=== PATIENT | male | born 1940 | race Caucasian/White ===

== ENCOUNTER 2019-12-17 14:13 | Inpatient (IN) ==
[2019-12-17] MEDS ORDERED: Furosemide 40 MG/4 ML VIAL IVP STA (14:50)
[2019-12-17 14:59] LABS: Basophils % 0.4 %; Eosinophils # 0.2 K/mcL (0.0-0.6); Hematocrit 48.7 % (37.5-50.1); Hemoglobin 15.7 g/dL (12.9-16.9); Immature Granulocytes % 0.3 % (0-4); Lymphocytes # 1.1 K/mcL (0.6-4.6); Lymphocytes % 14.1 %; Mean Corpuscular HGB Conc 32.2 g/dL (31.6-35.5); Mean Platelet Volume 10.6 fL (9.4-12.4); Monocytes # 0.5 K/mcL (0.0-1.3); Monocytes % 6.4 %; Neutrophils # 5.8 K/mcL (1.6-8.9); Platelet Count 191 K/mcL (140-400); Red Blood Count 5.41 M/mcL (4.19-5.50); Red Cell Distribution Width 13.3 % (11.5-14.5); Segmented Neutrophils % 76.8 %; White Blood Count 7.6 K/mcL (4.3-11.1)
[2019-12-17 15:12] LABS: INR 2.5
[2019-12-17 15:15] LABS: Activated Partial Thrombo Time 41.8 Seconds (26.0-36.0)
[2019-12-17 15:20] LABS: Alanine Aminotransferase 16 Units/L (7-52); Albumin 4.2 g/dL (3.5-5.7); Albumin/Globulin Ratio 1.8 (1.1-2.2); Alkaline Phosphatase 48 Units/L (34-104); Aspartate Amino Transferase 15 Units/L (13-39); BUN/Creatinine Ratio 13 (6-26); Blood Urea Nitrogen 17 mg/dL (8-23); Calcium 9.9 mg/dL (8.6-10.3); Carbon Dioxide 36 mEq/L (23-29); Chloride 101 mEq/L (98-107); Globulin 2.3 g/dL (2.4-3.5); Glucose 115 mg/dL (70-105); Osmolality,Calculated 298 (280-300); Sodium 143 mEq/L (136-145); Total Protein 6.5 g/dL (6.4-8.9); Troponin I < 0.03 ng/mL (< 0.04); eGFR For African Americans > 60 (> 60); eGFR For Non-African Americans 50 (> 60)
[2019-12-17] MEDS ORDERED: Naloxone 0.4 MG/ML INJ IVP PRN (16:16)
[2019-12-17] MEDS: cloNIDine HCL 0.1 MG TABLET PO SCH (21:17)
[2019-12-17] MEDS: Furosemide 40 MG/4 ML VIAL IVP SCH (21:18)
[2019-12-17] MEDS: *HR* Heparin 5,000 UNIT/ML VIAL SQ SCH (21:18)
[2019-12-17] MEDS: hydrALAZINE 25 MG TABLET PO SCH (23:51)
[2019-12-18] MEDS: *HR* Heparin 5,000 UNIT/ML VIAL SQ SCH ×2 (05:31→15:32)
[2019-12-18] MEDS: Multivit/Ca/Min/Fe/FA 1 TAB TABLET PO SCH (08:10)
[2019-12-18] MEDS: Finasteride 5 MG TABLET PO SCH (08:10)
[2019-12-18] MEDS: amLODIPine 5 MG TABLET PO SCH (08:10)
[2019-12-18] MEDS: Ascorbic Acid 500 MG TABLET PO SCH (08:10)
[2019-12-18] MEDS: cloNIDine HCL 0.1 MG TABLET PO SCH ×2 (08:10→20:15)
[2019-12-18] MEDS: Furosemide 40 MG/4 ML VIAL IVP SCH ×2 (08:10→20:15)
[2019-12-18] MEDS: hydrALAZINE 25 MG TABLET PO SCH ×2 (08:10→15:33)
[2019-12-18 08:22] LABS: Basophils % 0.4 %; Eosinophils # 0.2 K/mcL (0.0-0.6); Eosinophils % 2.4 %; Hematocrit 51.5 % (37.5-50.1); Hemoglobin 16.8 g/dL (12.9-16.9); Immature Granulocytes % 0.3 % (0-4); Lymphocytes # 1.2 K/mcL (0.6-4.6); Lymphocytes % 17.2 %; Mean Corpuscular HGB Conc 32.6 g/dL (31.6-35.5); Mean Corpuscular Hemoglobin 29.3 pg (28.0-33.3); Mean Corpuscular Volume 89.9 fL (83.0-100.0); Mean Platelet Volume 10.9 fL (9.4-12.4); Monocytes # 0.6 K/mcL (0.0-1.3); Monocytes % 8.3 %; Neutrophils # 5.2 K/mcL (1.6-8.9); Platelet Count 207 K/mcL (140-400); Red Blood Count 5.73 M/mcL (4.19-5.50); Red Cell Distribution Width 13.5 % (11.5-14.5); Segmented Neutrophils % 71.4 %; White Blood Count 7.2 K/mcL (4.3-11.1)
[2019-12-18 08:43] LABS: Calcium 9.7 mg/dL (8.6-10.3); Potassium 3.2 mEq/L (3.5-5.1)
[2019-12-18] MEDS ORDERED: NON-FORMULARY MEDICATION 1 EACH EACH (Clonidine Hcl [Clonidine Hcl] 0.2 MG) PO SCH (09:00)
[2019-12-18] MEDS ORDERED: NON-FORMULARY MEDICATION 1 EACH EACH (Amlodipine Besylate 10 MG) PO SCH (09:00)
[2019-12-18] MEDS ORDERED: Bismuth Subsalicylate 120 ML ORAL SUSPENSION PO ONE (10:16)
[2019-12-18] MEDS ORDERED: Sennosides/Docusate Sodium TABLET PO PRN (16:03)
[2019-12-18] MEDS: polyethylene glycoL 3350 17 GM POWD.PACK PO SCH (17:46)
[2019-12-18] MEDS ORDERED: *HR* Warfarin 3 MG TABLET PO ONE (18:00)
[2019-12-18] MEDS ORDERED: Warfarin perPT PO PRN (18:00)
[2019-12-19] MEDS: hydrALAZINE 25 MG TABLET PO SCH ×2 (00:27→08:06)
[2019-12-19 04:42] LABS: INR 2.1; Prothrombin Time 24.4 Seconds (9.4-12.1)
[2019-12-19 04:58] LABS: Calcium 9.5 mg/dL (8.6-10.3); Magnesium 2.2 mg/dL (1.6-2.6); Phosphorous 3.4 mg/dL (2.7-4.5); Potassium 3.7 mEq/L (3.5-5.1)
[2019-12-19] MEDS: Finasteride 5 MG TABLET PO SCH (08:06)
[2019-12-19] MEDS: amLODIPine 5 MG TABLET PO SCH (08:06)
[2019-12-19] MEDS: Multivit/Ca/Min/Fe/FA 1 TAB TABLET PO SCH (08:06)
[2019-12-19] MEDS: polyethylene glycoL 3350 17 GM POWD.PACK PO SCH (08:07)
[2019-12-19] MEDS: cloNIDine HCL 0.1 MG TABLET PO SCH (08:07)
[2019-12-19] MEDS: Furosemide 40 MG/4 ML VIAL IVP SCH (08:07)
[2019-12-19] MEDS: Ascorbic Acid 500 MG TABLET PO SCH (08:07)
[2019-12-19 11:20] VITALS: BP 144/90
== END 2019-12-19 12:14 | disposition home or self-care (01) | DRG 292 ==
LOC: EMEROOARM 14:13 → 3BNU 14:13 → SUATTDRO 16:17 → 3BNU 17:30
PROVIDERS: ADMIT Internal Medicine; ATTEND Internal Medicine

== ENCOUNTER 2021-01-18 10:36 | Inpatient (IN) ==
[2021-01-18 12:48] LABS: INR 2.6; Prothrombin Time 29.5 Seconds (9.4-12.1)
[2021-01-18 12:51] LABS: Basophils % 0.1 %; Eosinophils # 0.1 K/mcL (0.0-0.6); Eosinophils % 0.5 %; Hematocrit 38.8 % (37.5-50.1); Hemoglobin 12.6 g/dL (12.9-16.9); Immature Granulocytes % 0.6 % (0-4); Lymphocytes # 1.2 K/mcL (0.6-4.6); Lymphocytes % 10.6 %; Mean Corpuscular HGB Conc 32.5 g/dL (31.6-35.5); Mean Corpuscular Volume 92.4 fL (83.0-100.0); Mean Platelet Volume 10.6 fL (9.4-12.4); Monocytes # 0.8 K/mcL (0.0-1.3); Monocytes % 7.8 %; Neutrophils # 8.7 K/mcL (1.6-8.9); Platelet Count 173 K/mcL (140-400); Red Cell Distribution Width 14.3 % (11.5-14.5); Segmented Neutrophils % 80.4 %; White Blood Count 10.8 K/mcL (4.3-11.1)
[2021-01-18] MEDS ORDERED: 0.9 % Sodium Chloride 1,000 ML IVC ONE (13:09)
[2021-01-18] MEDS ORDERED: Piperacillin/Tazobactam 3.375 GM in 0.9 % Sodium Chloride Mini Bag 100 ML IVPB ONE (13:17)
[2021-01-18 13:29] LABS: Albumin 3.7 g/dL (3.5-5.7); Albumin/Globulin Ratio 1.3 (1.1-2.2); Bilirubin,Direct 0.4 mg/dL (0.0-0.2); Bilirubin,Indirect 1.2 mg/dL (0.0-1.0); Bilirubin,Total 1.6 mg/dL (0.3-1.0); Calcium 9.5 mg/dL (8.6-10.3); Globulin 2.8 g/dL (2.4-3.5); Potassium 4.5 mEq/L (3.5-5.1); Total Protein 6.5 g/dL (6.4-8.9)
[2021-01-18 14:19] LABS: Bilirubin,Urine Negative (Negative); Blood,Urine Negative (Negative); Clarity,Urine Clear (Clear); Color,Urine Yellow (Yellow); Glucose,Urine (UA) Normal (Normal); Ketones,Urine Negative (Negative); Leukocyte Esterase,Urine Negative (Negative); Nitrite,Urine Negative (Negative); Protein,Urine Trace mg/dL (Neg-Trace); Specific Gravity,Urine 1.015 (1.010-1.025); Urobilinogen,Urine Normal (Normal)
[2021-01-18] MEDS ORDERED: *HR* HYDROcodone/Acet 5/325 mg TABLET PO PRN (15:43)
[2021-01-18] MEDS ORDERED: Ondansetron 4 MG/2 ML VIAL IVP PRN (15:43)
[2021-01-18] MEDS ORDERED: Naloxone 0.4 MG/ML INJ IVP PRN (15:43)
[2021-01-18] MEDS ORDERED: Acetaminophen 325 MG TABLET PO PRN (15:43)
[2021-01-18] MEDS ORDERED: Melatonin 3 MG TABLET PO PRN (15:43)
[2021-01-18] MEDS ORDERED: Perflutren Lipid Microsphere 1.3 ML in 0.9 % Sodium Chloride 8.7 ML IVP PRN (16:10)
[2021-01-18] MEDS ORDERED: *HR* Warfarin 5 MG TABLET PO ONE (18:00)
[2021-01-18] MEDS ORDERED: *HR* Warfarin 3 MG TABLET PO ONE (18:00)
[2021-01-18] MEDS ORDERED: Warfarin perPT PO PRN (18:00)
[2021-01-18] MEDS ORDERED: Vancomycin 1,750 MG/517.5 ML IV.SOLN IVPB SCH (18:00)
[2021-01-18] MEDS: Albumin 25% 25gram/100mL 25 GM/100 ML IV.SOLN IVPB SCH (20:48)
[2021-01-18] MEDS: Furosemide 40 MG/4 ML VIAL IVP SCH (22:17)
[2021-01-19 04:54] LABS: Basophils % 0.2 %; Eosinophils # 0.1 K/mcL (0.0-0.6); Eosinophils % 1.4 %; Hematocrit 35.6 % (37.5-50.1); Hemoglobin 11.8 g/dL (12.9-16.9); Immature Granulocytes % 0.4 % (0-4); Lymphocytes # 1.1 K/mcL (0.6-4.6); Lymphocytes % 12.1 %; Mean Corpuscular HGB Conc 33.1 g/dL (31.6-35.5); Mean Corpuscular Hemoglobin 30.3 pg (28.0-33.3); Mean Corpuscular Volume 91.5 fL (83.0-100.0); Mean Platelet Volume 10.7 fL (9.4-12.4); Monocytes # 0.7 K/mcL (0.0-1.3); Neutrophils # 7.3 K/mcL (1.6-8.9); Platelet Count 173 K/mcL (140-400); Red Blood Count 3.89 M/mcL (4.19-5.50); Red Cell Distribution Width 14.3 % (11.5-14.5); Segmented Neutrophils % 78.9 %; White Blood Count 9.2 K/mcL (4.3-11.1)
[2021-01-19 05:02] LABS: Estimated Average Glucose 120 mg/dl; Hemoglobin A1C 5.8 %; INR 2.6; Prothrombin Time 29.7 Seconds (9.4-12.1)
[2021-01-19 05:15] LABS: Albumin 3.6 g/dL (3.5-5.7); Albumin/Globulin Ratio 1.3 (1.1-2.2); Bilirubin,Total 1.7 mg/dL (0.3-1.0); Calcium 9.1 mg/dL (8.6-10.3); Chol/HDL Ratio 4.6 (0-4.9); Globulin 2.7 g/dL (2.4-3.5); Magnesium 2.5 mg/dL (1.6-2.6); Phosphorous 2.8 mg/dL (2.7-4.5); Potassium 4.9 mEq/L (3.5-5.1); Total Protein 6.3 g/dL (6.4-8.9)
[2021-01-19 05:16] LABS: % Iron Saturation 23 % (20-55); Iron 45 mcg/dL (65-175); Transferrin 142 mg/dL (203-362)
[2021-01-19 05:28] LABS: Thyroid Stimulating Hormone 0.512 mcIU/mL (0.340-5.600)
[2021-01-19 05:32] LABS: Ferritin 1131 ng/mL (20-250)
[2021-01-19 05:42] LABS: Folate > 22.3 ng/mL (3.0-16.0); Vitamin B12 262 pg/mL (250-1100)
[2021-01-19] MEDS: Albumin 25% 25gram/100mL 25 GM/100 ML IV.SOLN IVPB SCH ×2 (06:25→18:41)
[2021-01-19] MEDS ORDERED: Iron Sucrose Complex 400 MG in 0.9 % Sodium Chloride 250 ML IVPB ONE (08:01)
[2021-01-19] MEDS: Furosemide 40 MG/4 ML VIAL IVP SCH ×2 (09:47→20:55)
[2021-01-19] MEDS: cloNIDine HCL 0.1 MG TABLET PO SCH ×2 (15:22→20:55)
[2021-01-19] MEDS: hydrALAZINE 25 MG TABLET PO SCH ×2 (17:04→23:35)
[2021-01-19] MEDS: Finasteride 5 MG TABLET PO SCH (17:05)
[2021-01-19] MEDS: carvediloL 6.25 MG TABLET PO SCH (17:05)
[2021-01-19] MEDS: Vancomycin 1,250 MG/262.5 ML IV.SOLN IVPB SCH (17:05)
[2021-01-19] MEDS ORDERED: amLODIPine 5 MG TABLET PO SCH (18:00)
[2021-01-19] MEDS ORDERED: *HR* Warfarin 3 MG TABLET PO ONE (18:00)
[2021-01-19] MEDS ORDERED: cloNIDine HCL 0.1 MG TABLET PO SCH (21:00)
[2021-01-20] MEDS: Albumin 25% 25gram/100mL 25 GM/100 ML IV.SOLN IVPB SCH ×2 (06:20→21:18)
[2021-01-20 06:31] LABS: Hematocrit 37.1 % (37.5-50.1); Hemoglobin 12.2 g/dL (12.9-16.9); Mean Corpuscular HGB Conc 32.9 g/dL (31.6-35.5); Mean Corpuscular Hemoglobin 30.2 pg (28.0-33.3); Mean Corpuscular Volume 91.8 fL (83.0-100.0); Mean Platelet Volume 10.2 fL (9.4-12.4); Platelet Count 237 K/mcL (140-400); Red Blood Count 4.04 M/mcL (4.19-5.50); White Blood Count 8.1 K/mcL (4.3-11.1)
[2021-01-20 06:32] LABS: INR 2.8; Prothrombin Time 31.4 Seconds (9.4-12.1)
[2021-01-20 06:51] LABS: Calcium 9.9 mg/dL (8.6-10.3); Magnesium 2.5 mg/dL (1.6-2.6); Phosphorous 3.2 mg/dL (2.7-4.5); Potassium 4.5 mEq/L (3.5-5.1)
[2021-01-20] MEDS: Furosemide 40 MG/4 ML VIAL IVP SCH ×2 (08:49→21:19)
[2021-01-20] MEDS: Ascorbic Acid 500 MG TABLET PO SCH (08:49)
[2021-01-20] MEDS: Spironolactone 25 MG TABLET PO SCH (08:50)
[2021-01-20] MEDS: carvediloL 6.25 MG TABLET PO SCH ×2 (08:50→17:06)
[2021-01-20] MEDS: Multivit/Ca/Min/Fe/FA 1 TAB TABLET PO SCH (08:50)
[2021-01-20] MEDS: cloNIDine HCL 0.1 MG TABLET PO SCH ×3 (08:50→21:18)
[2021-01-20] MEDS: hydrALAZINE 25 MG TABLET PO SCH ×2 (08:50→17:05)
[2021-01-20] MEDS: Vitamin E 200 UNIT (90MG) CAPSULE PO SCH (08:51)
[2021-01-20] MEDS: cefTRIAXone 1,000 MG in Water for inj. (sterile) 10 ML IVP SCH (12:55)
[2021-01-20] MEDS: Finasteride 5 MG TABLET PO SCH (17:06)
[2021-01-20] MEDS ORDERED: *HR* Warfarin 3 MG TABLET PO ONE (18:00)
[2021-01-20] MEDS: Vancomycin 1,250 MG/262.5 ML IV.SOLN IVPB SCH (18:14)
[2021-01-20] MEDS: Lactobacillus 1 EACH CAP.SPRINK PO SCH (21:18)
[2021-01-21] MEDS: hydrALAZINE 25 MG TABLET PO SCH ×2 (00:38→09:31)
[2021-01-21 05:56] LABS: Hematocrit 35.6 % (37.5-50.1); Hemoglobin 11.4 g/dL (12.9-16.9); Mean Corpuscular Hemoglobin 29.5 pg (28.0-33.3); Mean Platelet Volume 10.2 fL (9.4-12.4); Platelet Count 257 K/mcL (140-400); Red Blood Count 3.87 M/mcL (4.19-5.50); Red Cell Distribution Width 14.2 % (11.5-14.5); White Blood Count 8.7 K/mcL (4.3-11.1)
[2021-01-21 06:03] LABS: INR 2.9; Prothrombin Time 32.7 Seconds (9.4-12.1)
[2021-01-21 06:16] LABS: Calcium 9.5 mg/dL (8.6-10.3); Magnesium 2.4 mg/dL (1.6-2.6); Phosphorous 3.4 mg/dL (2.7-4.5); Potassium 4.6 mEq/L (3.5-5.1)
[2021-01-21] MEDS: Albumin 25% 25gram/100mL 25 GM/100 ML IV.SOLN IVPB SCH (06:31)
[2021-01-21 07:43] VITALS: BP 150/90
[2021-01-21] MEDS: Spironolactone 25 MG TABLET PO SCH (09:31)
[2021-01-21] MEDS: Ascorbic Acid 500 MG TABLET PO SCH (09:31)
[2021-01-21] MEDS: Lactobacillus 1 EACH CAP.SPRINK PO SCH (09:31)
[2021-01-21] MEDS: cloNIDine HCL 0.1 MG TABLET PO SCH (09:31)
[2021-01-21] MEDS: Multivit/Ca/Min/Fe/FA 1 TAB TABLET PO SCH (09:31)
[2021-01-21] MEDS: Vitamin E 200 UNIT (90MG) CAPSULE PO SCH (09:32)
[2021-01-21] MEDS: carvediloL 6.25 MG TABLET PO SCH (09:32)
[2021-01-21] MEDS: Furosemide 40 MG/4 ML VIAL IVP SCH (09:32)
[2021-01-21] MEDS: cefTRIAXone 1,000 MG in Water for inj. (sterile) 10 ML IVP SCH (12:38)
[2021-01-21] MEDS ORDERED: Vancomycin 1,500 MG/265 ML IV.SOLN IVPB SCH (18:00)
[2021-01-21] MEDS ORDERED: *HR* Warfarin 3 MG TABLET PO ONE (18:00)
== END 2021-01-21 14:16 | disposition home health service (06) | DRG 602 ==
LOC: 3ANU 10:36 → EMEROOARM 10:36 → SUATTDRO 15:36 → 3ANU 16:35
PROVIDERS: ADMIT Internal Medicine; ATTEND Internal Medicine

== ENCOUNTER 2021-01-28 13:26 | Observation (INO) ==
[2021-01-28 14:17] LABS: Basophils % 0.1 %; Hematocrit 42.4 % (37.5-50.1); Hemoglobin 13.5 g/dL (12.9-16.9); Immature Granulocytes % 0.6 % (0-4); Lymphocytes # 0.8 K/mcL (0.6-4.6); Lymphocytes % 2.9 %; Mean Corpuscular HGB Conc 31.8 g/dL (31.6-35.5); Mean Corpuscular Hemoglobin 29.6 pg (28.0-33.3); Mean Platelet Volume 9.8 fL (9.4-12.4); Monocytes # 0.8 K/mcL (0.0-1.3); Neutrophils # 24.6 K/mcL (1.6-8.9); Platelet Count 269 K/mcL (140-400); Red Blood Count 4.56 M/mcL (4.19-5.50); Red Cell Distribution Width 14.1 % (11.5-14.5); Segmented Neutrophils % 93.4 %; White Blood Count 26.3 K/mcL (4.3-11.1)
[2021-01-28 14:37] LABS: Platelet Estimate Normal (Normal)
[2021-01-28 14:55] LABS: BUN/Creatinine Ratio 19 (6-26); Blood Urea Nitrogen 33 mg/dL (8-23); Calcium 9.6 mg/dL (8.6-10.3); Carbon Dioxide 31 mEq/L (23-29); Chloride 98 mEq/L (98-107); Glucose 115 mg/dL (70-105); Osmolality,Calculated 292 (280-300); Potassium 4.7 mEq/L (3.5-5.1); Sodium 137 mEq/L (136-145); Troponin I < 0.03 ng/mL (< 0.04); eGFR For African Americans 46 (> 60); eGFR For Non-African Americans 38 (> 60)
[2021-01-28 15:22] LABS: Bilirubin,Urine Negative (Negative); Blood,Urine Trace (Negative); Clarity,Urine Clear (Clear); Color,Urine Light-Yellow (Yellow); Glucose,Urine (UA) Normal (Normal); Ketones,Urine Negative (Negative); Leukocyte Esterase,Urine Negative (Negative); Mucus,Urine Few per lpf (None-Few); Nitrite,Urine Negative (Negative); Protein,Urine Negative (Neg-Trace); Specific Gravity,Urine 1.012 (1.010-1.025); Squamous Epithelial Cell,Urine Few per hpf (None-Few); Urobilinogen,Urine Normal (Normal); WBC,Urine 0-3 per hpf (0-3)
[2021-01-28] MEDS ORDERED: Clindamycin 900 MG/50 ML 900 MG/50 ML IV.SOLN IVPB ONE (16:18)
[2021-01-28] MEDS ORDERED: Naloxone 0.4 MG/ML INJ IVP PRN (17:44)
[2021-01-28] MEDS ORDERED: Ondansetron 4 MG/2 ML VIAL IVP PRN (17:44)
[2021-01-28] MEDS ORDERED: Warfarin perPT PO PRN (18:00)
[2021-01-28 18:14] LABS: Activated Partial Thrombo Time 41.4 Seconds (26.0-36.0)
[2021-01-28 18:17] LABS: INR 4.5; Prothrombin Time 49.7 Seconds (9.4-12.1)
[2021-01-28] MEDS: Furosemide 40 MG/4 ML VIAL IVP SCH (23:31)
[2021-01-29 01:56] LABS: Basophils % 0.1 %; Eosinophils % 0.1 %; Hematocrit 41.7 % (37.5-50.1); Hemoglobin 13.6 g/dL (12.9-16.9); Immature Granulocytes % 0.4 % (0-4); Lymphocytes # 1.6 K/mcL (0.6-4.6); Lymphocytes % 9.5 %; Mean Corpuscular HGB Conc 32.6 g/dL (31.6-35.5); Mean Corpuscular Hemoglobin 30.2 pg (28.0-33.3); Mean Corpuscular Volume 92.7 fL (83.0-100.0); Mean Platelet Volume 10.2 fL (9.4-12.4); Monocytes # 0.8 K/mcL (0.0-1.3); Monocytes % 4.6 %; Neutrophils # 14.4 K/mcL (1.6-8.9); Platelet Count 259 K/mcL (140-400); Red Cell Distribution Width 14.3 % (11.5-14.5); Segmented Neutrophils % 85.3 %; White Blood Count 16.8 K/mcL (4.3-11.1)
[2021-01-29 02:10] LABS: INR 4.3
[2021-01-29 02:13] LABS: Prothrombin Time 47.9 Seconds (9.4-12.1)
[2021-01-29 02:21] LABS: Calcium 9.6 mg/dL (8.6-10.3); Potassium 4.4 mEq/L (3.5-5.1)
[2021-01-29] MEDS: cefTRIAXone 1,000 MG in Water for inj. (sterile) 10 ML IVP SCH (08:29)
[2021-01-29] MEDS: Furosemide 40 MG/4 ML VIAL IVP SCH ×2 (08:30→20:59)
[2021-01-29] MEDS: Lactobacillus 1 EACH CAP.SPRINK PO SCH ×2 (10:11→20:58)
[2021-01-29] MEDS: Spironolactone 25 MG TABLET PO SCH (10:11)
[2021-01-29] MEDS: cloNIDine HCL 0.1 MG TABLET PO SCH ×3 (10:11→20:58)
[2021-01-29] MEDS: carvediloL 25 MG TABLET PO SCH ×2 (10:12→15:45)
[2021-01-29] MEDS: hydrALAZINE 25 MG TABLET PO SCH ×2 (15:46→23:55)
[2021-01-29] MEDS ORDERED: Finasteride 5 MG TABLET PO SCH (18:00)
[2021-01-30 01:29] LABS: Basophils % 0.3 %; Eosinophils # 0.2 K/mcL (0.0-0.6); Eosinophils % 1.6 %; Hematocrit 37.4 % (37.5-50.1); Hemoglobin 12.2 g/dL (12.9-16.9); Immature Granulocytes % 0.4 % (0-4); Lymphocytes # 1.9 K/mcL (0.6-4.6); Mean Corpuscular HGB Conc 32.6 g/dL (31.6-35.5); Mean Corpuscular Hemoglobin 30.4 pg (28.0-33.3); Mean Corpuscular Volume 93.3 fL (83.0-100.0); Mean Platelet Volume 10.3 fL (9.4-12.4); Monocytes % 9.3 %; Neutrophils # 7.2 K/mcL (1.6-8.9); Platelet Count 195 K/mcL (140-400); Red Blood Count 4.01 M/mcL (4.19-5.50); Red Cell Distribution Width 14.1 % (11.5-14.5); Segmented Neutrophils % 70.4 %; White Blood Count 10.3 K/mcL (4.3-11.1)
[2021-01-30 01:40] LABS: INR 2.6; Prothrombin Time 29.8 Seconds (9.4-12.1)
[2021-01-30 01:52] LABS: Calcium 9.1 mg/dL (8.6-10.3); Magnesium 2.3 mg/dL (1.6-2.6); Phosphorous 3.5 mg/dL (2.7-4.5); Potassium 4.2 mEq/L (3.5-5.1)
[2021-01-30 07:15] VITALS: BP 129/78
[2021-01-30] MEDS: cefTRIAXone 1,000 MG in Water for inj. (sterile) 10 ML IVP SCH (08:13)
[2021-01-30] MEDS: Lactobacillus 1 EACH CAP.SPRINK PO SCH (08:13)
[2021-01-30] MEDS: Furosemide 40 MG/4 ML VIAL IVP SCH (08:13)
[2021-01-30] MEDS: carvediloL 25 MG TABLET PO SCH (08:14)
[2021-01-30] MEDS: hydrALAZINE 25 MG TABLET PO SCH (08:14)
[2021-01-30] MEDS: Spironolactone 25 MG TABLET PO SCH (08:14)
[2021-01-30] MEDS: cloNIDine HCL 0.1 MG TABLET PO SCH (08:14)
== END 2021-01-30 11:10 | disposition home or self-care (01) ==
LOC: 3BNU 13:26 → EMEROOARM 13:26 → 3BNU 18:50
PROVIDERS: ADMIT Internal Medicine; ATTEND Internal Medicine

== ENCOUNTER 2021-02-21 08:03 | Inpatient (IN) ==
[2021-02-21] MEDS ORDERED: 0.9 % Sodium Chloride 1,000 ML IVC ONE ×3 (08:22→10:02)
[2021-02-21] MEDS ORDERED: Acetaminophen 325 MG TABLET PO ONE (08:22)
[2021-02-21 08:55] LABS: Basophils % 0.2 %; Hematocrit 44.1 % (37.5-50.1); Hemoglobin 14.4 g/dL (12.9-16.9); Immature Granulocytes % 0.7 % (0-4); Lymphocytes # 0.5 K/mcL (0.6-4.6); Lymphocytes % 2.9 %; Mean Corpuscular HGB Conc 32.7 g/dL (31.6-35.5); Mean Corpuscular Hemoglobin 29.8 pg (28.0-33.3); Mean Corpuscular Volume 91.3 fL (83.0-100.0); Mean Platelet Volume 10.9 fL (9.4-12.4); Monocytes # 0.5 K/mcL (0.0-1.3); Monocytes % 3.1 %; Neutrophils # 16.1 K/mcL (1.6-8.9); Platelet Count 146 K/mcL (140-400); Red Blood Count 4.83 M/mcL (4.19-5.50); Segmented Neutrophils % 93.1 %; White Blood Count 17.4 K/mcL (4.3-11.1)
[2021-02-21 09:04] LABS: INR 2.3; Prothrombin Time 25.5 Seconds (9.4-12.1)
[2021-02-21] MEDS ORDERED: Piperacillin/Tazobactam 3.375 GM in 0.9 % Sodium Chloride Mini Bag 100 ML IVPB ONE (09:05)
[2021-02-21 09:13] LABS: Albumin/Globulin Ratio 1.5 (1.1-2.2); Bilirubin,Total 2.4 mg/dL (0.3-1.0); Calcium 9.3 mg/dL (8.6-10.3); Globulin 2.7 g/dL (2.4-3.5); Potassium 4.3 mEq/L (3.5-5.1); Total Protein 6.7 g/dL (6.4-8.9)
[2021-02-21 10:42] LABS: Bacteria,Urine Few per hpf (None-Few); Bilirubin,Urine Negative (Negative); Blood,Urine Large (Negative); Clarity,Urine Turbid (Clear); Color,Urine Yellow (Yellow); Glucose,Urine (UA) Normal (Normal); Ketones,Urine Negative (Negative); Leukocyte Esterase,Urine Small (Negative); Mucus,Urine Few per lpf (None-Few); Nitrite,Urine Negative (Negative); PH,Urine 5.5 pH Units (5.0-8.0); Protein,Urine 50 mg/dL (Neg-Trace); RBC,Urine TNTC per hpf (0-3); Specific Gravity,Urine 1.018 (1.010-1.025); Squamous Epithelial Cell,Urine Few per hpf (None-Few); Urobilinogen,Urine Normal (Normal); WBC,Urine 50-100 per hpf (0-3)
[2021-02-21] MEDS ORDERED: Naloxone 0.4 MG/ML INJ IVP PRN (12:01)
[2021-02-21] MEDS: cloNIDine HCL 0.1 MG TABLET PO SCH ×2 (15:04→22:31)
[2021-02-21] MEDS: hydrALAZINE 25 MG TABLET PO SCH (15:04)
[2021-02-21] MEDS: carvediloL 25 MG TABLET PO SCH (16:59)
[2021-02-21] MEDS: Finasteride 5 MG TABLET PO SCH (16:59)
[2021-02-21] MEDS: Ampicillin/Sulbactam 1,500 MG in 0.9 % Sodium Chloride Mini Bag 100 ML IVPB SCH ×2 (18:15→22:31)
[2021-02-21] MEDS: Lactobacillus 1 EACH CAP.SPRINK PO SCH (22:31)
[2021-02-22] MEDS: hydrALAZINE 25 MG TABLET PO SCH ×3 (01:01→14:37)
[2021-02-22 01:15] LABS: Eosinophils % 0.2 %
[2021-02-22 01:17] LABS: Basophils % 0.3 %; Hematocrit 38.4 % (37.5-50.1); Hemoglobin 12.2 g/dL (12.9-16.9); Immature Granulocytes % 0.6 % (0-4); Immature Platelets 5.3 % (1.1-6.1); Lymphocytes # 1.3 K/mcL (0.6-4.6); Lymphocytes % 9.7 %; Mean Corpuscular HGB Conc 31.8 g/dL (31.6-35.5); Mean Corpuscular Volume 94.3 fL (83.0-100.0); Mean Platelet Volume 10.5 fL (9.4-12.4); Monocytes # 1.1 K/mcL (0.0-1.3); Monocytes % 8.2 %; Neutrophils # 10.5 K/mcL (1.6-8.9); Platelet Count 119 K/mcL (140-400); Red Blood Count 4.07 M/mcL (4.19-5.50); Red Cell Distribution Width 14.4 % (11.5-14.5)
[2021-02-22 01:23] LABS: INR 2.1; Prothrombin Time 23.6 Seconds (9.4-12.1)
[2021-02-22 01:43] LABS: BUN/Creatinine Ratio 20 (6-26); Blood Urea Nitrogen 41 mg/dL (8-23); Calcium 8.7 mg/dL (8.6-10.3); Carbon Dioxide 27 mEq/L (23-29); Chloride 102 mEq/L (98-107); Glucose 111 mg/dL (70-105); Osmolality,Calculated 297 (280-300); Potassium 4.2 mEq/L (3.5-5.1); Sodium 138 mEq/L (136-145); eGFR For African Americans 39 (> 60); eGFR For Non-African Americans 32 (> 60)
[2021-02-22] MEDS: Ampicillin/Sulbactam 1,500 MG in 0.9 % Sodium Chloride Mini Bag 100 ML IVPB SCH ×3 (06:48→17:43)
[2021-02-22 08:55] LABS: Lactate Dehydrogenase 134 Units/L (140-271); Total Protein 5.9 g/dL (6.4-8.9)
[2021-02-22] MEDS ORDERED: Spironolactone 25 MG TABLET PO SCH (09:00)
[2021-02-22] MEDS: Multivit/Ca/Min/Fe/FA 1 TAB TABLET PO SCH (09:02)
[2021-02-22] MEDS: Vitamin E 200 UNIT (90MG) CAPSULE PO SCH (09:02)
[2021-02-22] MEDS: carvediloL 25 MG TABLET PO SCH ×2 (09:02→17:45)
[2021-02-22] MEDS: Lactobacillus 1 EACH CAP.SPRINK PO SCH ×2 (09:02→22:38)
[2021-02-22] MEDS: cloNIDine HCL 0.1 MG TABLET PO SCH ×3 (09:03→22:38)
[2021-02-22] MEDS: Finasteride 5 MG TABLET PO SCH (17:45)
[2021-02-23] MEDS: hydrALAZINE 25 MG TABLET PO SCH ×2 (00:10→08:30)
[2021-02-23] MEDS: Ampicillin/Sulbactam 1,500 MG in 0.9 % Sodium Chloride Mini Bag 100 ML IVPB SCH ×3 (00:10→10:45)
[2021-02-23 03:19] LABS: Hematocrit 37.3 % (37.5-50.1); Hemoglobin 12.1 g/dL (12.9-16.9); Mean Corpuscular HGB Conc 32.4 g/dL (31.6-35.5); Mean Corpuscular Hemoglobin 30.4 pg (28.0-33.3); Mean Corpuscular Volume 93.7 fL (83.0-100.0); Mean Platelet Volume 10.3 fL (9.4-12.4); Platelet Count 118 K/mcL (140-400); Red Blood Count 3.98 M/mcL (4.19-5.50); Red Cell Distribution Width 14.1 % (11.5-14.5)
[2021-02-23 03:40] LABS: Calcium 8.7 mg/dL (8.6-10.3); Potassium 4.2 mEq/L (3.5-5.1)
[2021-02-23] MEDS: carvediloL 25 MG TABLET PO SCH (08:30)
[2021-02-23] MEDS: Multivit/Ca/Min/Fe/FA 1 TAB TABLET PO SCH (08:30)
[2021-02-23] MEDS: Vitamin E 200 UNIT (90MG) CAPSULE PO SCH (08:30)
[2021-02-23] MEDS: Lactobacillus 1 EACH CAP.SPRINK PO SCH (08:30)
[2021-02-23] MEDS: cloNIDine HCL 0.1 MG TABLET PO SCH (08:30)
[2021-02-23] MEDS ORDERED: Furosemide 40 MG TABLET PO SCH (10:15)
[2021-02-23 11:12] VITALS: BP 146/88; PULSE 77; TEMP 98.1; O2SAT 91
== END 2021-02-23 12:00 | disposition home or self-care (01) | DRG 872 ==
LOC: 2ANU 08:03 → EMEROOARM 08:03 → SUATTDRO 11:36 → 2ANU 12:57
PROVIDERS: ADMIT Internal Medicine; ATTEND Internal Medicine